=== PATIENT | female | born 1945 | race Asian ===

== ENCOUNTER 2021-04-10 08:01 | Outpatient (REF) | payer MEDICARE, SELFPAY ==
[2021-04-10 12:07] LABS: Potassium 3.8 mmol/L (3.3-5.1)
[2021-04-10 12:20] LABS: Free T4 (Free Thyroxine) 1.28 ng/dL (0.71-1.85); Thyroid Stimulating Hormone 0.96 uIU/mL (0.32-4.0)
== END 2021-04-10 08:02 | disposition home or self-care (01) ==
LOC: HO.HMGCLDS 08:01
PROVIDERS: PCP Internal Medicine; Visit Provider Internal Medicine
DX: E03.9 Hypothyroidism, unspecified (principal); E11.29 Type 2 diabetes mellitus with other diabetic kidney complication; E87.6 Hypokalemia; I10 Essential (primary) hypertension; E78.5 Hyperlipidemia, unspecified; Z78.0 Asymptomatic menopausal state
CPT/HCPCS: 36415; 84132; 84439; 84443

== ENCOUNTER 2021-04-11 14:07 | Outpatient (REF) | payer MEDICARE, SELFPAY ==
[2021-04-11 15:07] LABS: Creatinine Urine 31.39 mg/dL; Microalbum/Creatinine Ratio Ur 500.1 ug/mg cr
== END 2021-04-11 14:08 | disposition home or self-care (01) ==
LOC: HO.LNP 14:07
PROVIDERS: Visit Provider Internal Medicine
DX: E03.9 Hypothyroidism, unspecified (principal); E78.5 Hyperlipidemia, unspecified; E11.29 Type 2 diabetes mellitus with other diabetic kidney complication; I10 Essential (primary) hypertension; Z78.0 Asymptomatic menopausal state
CPT/HCPCS: 82043

== ENCOUNTER 2021-06-28 08:25 | Outpatient (REF) | payer MEDICARE, SELFPAY ==
[2021-06-28 12:01] LABS: Estimated Average Glucose 154 mg/dL
[2021-06-28 12:16] LABS: Alanine Aminotransferase 29 U/L (0-31); Anion Gap 20 (12-20); Aspartate Amino Transferase 31 U/L (5-31); Blood Urea Nitrogen 18 mg/dL (9-16); Calcium 10.1 mg/dL (8.4-10.2); Carbon Dioxide 29 mmol/L (22-29); Chloride 98 mmol/L (96-108); Cholesterol 121 mg/dL; Estimated Glomerular Filt Rate > 60; Glucose Fasting 102 mg/dL (60-99); HDL Cholesterol 41 mg/dL; LDL Cholesterol Calculated 56 mg/dl; Potassium 3.5 mmol/L (3.3-5.1); Sodium 143 mmol/L (135-145); Triglycerides 122 mg/dL
[2021-06-28 12:37] LABS: Free T4 (Free Thyroxine) 1.21 ng/dL (0.71-1.85); Thyroid Stimulating Hormone 1.36 uIU/mL (0.32-4.0)
== END 2021-06-28 08:26 | disposition home or self-care (01) ==
LOC: HO.HMGCLDS 08:25
PROVIDERS: PCP Internal Medicine; Visit Provider Internal Medicine
DX: E11.29 Type 2 diabetes mellitus with other diabetic kidney complication (principal); E87.6 Hypokalemia; I10 Essential (primary) hypertension; E03.9 Hypothyroidism, unspecified; E78.5 Hyperlipidemia, unspecified; Z78.0 Asymptomatic menopausal state
CPT/HCPCS: 36415; 80048; 80061; 82306; 83036; 84439; 84443; 84450; 84460

== ENCOUNTER 2021-09-26 08:36 | Outpatient (REF) | payer MEDICARE, SELFPAY ==
[2021-09-26 11:44] LABS: Estimated Average Glucose 157 mg/dL; Hemoglobin A1c % 7.1 %
[2021-09-26 12:03] LABS: Anion Gap 15 (12-20); Blood Urea Nitrogen 20 mg/dL (9-16); Calcium 9.8 mg/dL (8.4-10.2); Carbon Dioxide 30 mmol/L (22-29); Chloride 99 mmol/L (96-108); Cholesterol 111 mg/dL; Estimated Glomerular Filt Rate 52; Glucose Fasting 81 mg/dL (60-99); HDL Cholesterol 38 mg/dL; LDL Cholesterol Calculated 48 mg/dl; Potassium 3.4 mmol/L (3.3-5.1); Sodium 141 mmol/L (135-145); Thyroid Stimulating Hormone 1.14 uIU/mL (0.32-4.0); Triglycerides 125 mg/dL
== END 2021-09-26 08:37 | disposition home or self-care (01) ==
LOC: HO.HMGCLDS 08:36
PROVIDERS: Visit Provider Internal Medicine
DX: E11.29 Type 2 diabetes mellitus with other diabetic kidney complication (principal); E78.5 Hyperlipidemia, unspecified; E03.9 Hypothyroidism, unspecified; I10 Essential (primary) hypertension
CPT/HCPCS: 36415; 80048; 80061; 83036; 84439; 84443

== ENCOUNTER 2021-10-10 11:13 | Outpatient (REF) | payer MEDICARE, SELFPAY ==
[2021-10-10 14:21] LABS: Uric Acid 8.1 mg/dL (2.4-5.7)
== END 2021-10-10 11:14 | disposition home or self-care (01) ==
LOC: HO.HMGCLDS 11:13
PROVIDERS: Visit Provider Internal Medicine
DX: M25.40 Effusion, unspecified joint (principal)
CPT/HCPCS: 36415; 84550

== ENCOUNTER 2021-12-04 07:18 | Outpatient (REF) | payer MEDICARE, SELFPAY ==
[2021-12-04 11:45] LABS: Estimated Average Glucose 171 mg/dL; Hemoglobin A1c % 7.6 %
[2021-12-04 12:05] LABS: Alanine Aminotransferase 22 U/L (0-31); Anion Gap 17 (12-20); Aspartate Amino Transferase 23 U/L (5-31); Blood Urea Nitrogen 20 mg/dL (9-16); Calcium 9.6 mg/dL (8.4-10.2); Carbon Dioxide 29 mmol/L (22-29); Chloride 100 mmol/L (96-108); Cholesterol 103 mg/dL; Estimated Glomerular Filt Rate 55; Glucose Fasting 156 mg/dL (60-99); HDL Cholesterol 39 mg/dL; LDL Cholesterol Calculated 43 mg/dl; Potassium 3.5 mmol/L (3.3-5.1); Sodium 142 mmol/L (135-145); Triglycerides 108 mg/dL
[2021-12-04 12:08] LABS: Free T4 (Free Thyroxine) 1.32 ng/dL (0.71-1.85); Thyroid Stimulating Hormone 0.89 uIU/mL (0.32-4.0)
== END 2021-12-04 07:19 | disposition home or self-care (01) ==
LOC: HO.HMGCLDS 07:18
PROVIDERS: Visit Provider Internal Medicine
DX: E11.29 Type 2 diabetes mellitus with other diabetic kidney complication (principal); E78.5 Hyperlipidemia, unspecified; I10 Essential (primary) hypertension; E03.9 Hypothyroidism, unspecified
CPT/HCPCS: 36415; 80048; 80061; 83036; 84439; 84443; 84450; 84460

== ENCOUNTER 2021-12-05 07:46 | Outpatient (REF) | payer MEDICARE, SELFPAY ==
[2021-12-05 12:35] LABS: Creatinine Urine 25.23 mg/dL; Microalbum/Creatinine Ratio Ur 463.7 ug/mg cr
== END 2021-12-05 07:47 | disposition home or self-care (01) ==
LOC: HO.HMGCLNP 07:46
PROVIDERS: Visit Provider Internal Medicine
DX: E11.29 Type 2 diabetes mellitus with other diabetic kidney complication (principal); I10 Essential (primary) hypertension; E03.9 Hypothyroidism, unspecified; E78.5 Hyperlipidemia, unspecified
CPT/HCPCS: 82043

== ENCOUNTER 2024-12-25 06:35 | Outpatient (REF) | payer MEDICARE, SELFPAY ==
[2024-12-25 10:34] LABS: MANUAL DIFF FLAG NO
[2024-12-25 10:42] LABS: Hematocrit 39.1 % (37.0-47.0); Hemoglobin 13.9 g/dl (12.0-16.0); Imm Gran Abs Auto 0.07 X10*3/uL (0.00-0.03); Imm Gran Pct Auto 0.8 % (0.0-0.4); Lymphocytes Absolute Auto 1.8 X10*3/uL (1.2-4.9); Mean Corpuscular HGB Conc 35.5 g/dl (31.0-35.0); Mean Corpuscular Hemoglobin 34.7 pg (27.0-33.0); Mean Corpuscular Volume 97.5 fL (80.0-98.0); NRBC Abs Auto 0.000 X10*3/uL (0.0-0.012); NRBC Pct Auto 0.0 /100WBC (0.0-0.2); Platelet Count 253 X10*3/uL (160-400); Red Blood Count 4.01 X10*6/uL (4.20-5.50); White Blood Count 9.2 X10*3/uL (4.8-10.8)
[2024-12-25 11:05] LABS: Alanine Aminotransferase 152 U/L (0-31); Albumin Level 4.2 g/dL (3.5-5.0); Alkaline Phosphatase 70 U/L (39-117); Anion Gap 14 (12-20); Aspartate Amino Transferase 119 U/L (5-31); Blood Urea Nitrogen 28 mg/dL (9-16); Calcium 9.8 mg/dL (8.4-10.2); Carbon Dioxide 29 mmol/L (22-29); Chloride 102 mmol/L (96-108); Cholesterol 107 mg/dL (<200); Estimated Glomerular Filt Rate 45; HDL Cholesterol 46 mg/dL (>40); Iron 88 mcg/dL (30-160); Percent Iron Saturation 30 % (15-50); Potassium 3.2 mmol/L (3.3-5.1); Sodium 142 mmol/L (135-145); Total Iron Binding Capacity 297 mcg/dL (228-428); Total Protein 7.0 g/dL (6.5-8.0); Triglycerides 72 mg/dL (<150); Unsaturated Iron Binding 209 ug/dL; Uric Acid 2.8 mg/dL (2.4-5.7)
[2024-12-25 11:24] LABS: Free T4 (Free Thyroxine) 1.66 ng/dL (0.71-1.85); Thyroid Stimulating Hormone 1.28 uIU/mL (0.32-4.0)
[2024-12-25 11:39] LABS: Microalbum/Creatinine Ratio Ur 714.4 ug/mg cr (<30)
== END 2024-12-25 06:36 | disposition home or self-care (01) ==
LOC: HO.HMGCLDS 06:35
PROVIDERS: PCP Internal Medicine; Visit Provider Internal Medicine
DX: E11.29 Type 2 diabetes mellitus with other diabetic kidney complication (principal); Z78.0 Asymptomatic menopausal state; E78.5 Hyperlipidemia, unspecified; I10 Essential (primary) hypertension; E03.9 Hypothyroidism, unspecified
CPT/HCPCS: 36415; 80053; 80061; 82043; 82570; 83540; 84439; 84443; 84550; 85025

== ENCOUNTER 2024-12-28 09:15 | Outpatient (AMB) | payer MEDICARE, SELFPAY ==
--- OUTSIDE RECORDS SUMMARY | 2024-12-28 09:36 | XMS_ITS | Encounter Summary ---
Author Organization [facility], Address [address] [place] [address] Phone Care Team Providers Care Asset Administrator Name Role Phone Denia Berrios MD Primary Care Provider [phone]- [phone] Reason for Visit * Reason Comments Med Refill Encounter Details Date Type Department Care Team (Late st Contact Info) Description 01/18/2023 Refill [facility] [address] [place] [address] Shad Arciniega MD [address] [place] [address] [place] [id number] Social History Tobacco Use Types Packs/Day Years Used Date Smoking Tobacco: Never Alcohol Use Standard Drinks/Week Comments No 0 (1 standard drink = 0.6 oz pur e alcohol) Comments Unknown Sex and Gender Information Value Date Recorded Sex Assigned at Not on file Legal Sex Female 4:32 PM EST Gender Identity Not on file Sexual Orientation Not on file documented as of this encounter Plan of Treatment Not on file documented as of this encounter Visit Diagnoses Not on filedocumented in this encounter Care Teams Asset Administrator Relationship Specialty Start Date End Date Denia Berrios MD [facility] [place] [address] PCP - General 04/21/19 documented as of this encounter
--- NOTE | 2024-12-28 10:14 | MHC.PC.OV ---
Vital Signs 12/28/24 10:22 Height 5 ft 2 in Weight 177 lb BMI 32.4 BP 140/70 H Blood Pressure Location Rt brachial Position Sitting Respiration 15 Pulse 61 Pulse Source Pulse Oximeter Temp 97.9 F Temp Source Oral Pulse Oximetry (%) 97 Oxygen Delivery Method Room Air Intake Visit Reasons: follow up Intake Note: Pt is here today for her f/u labs Allergies No Known Allergies Allergy (Verified 12/28/24 10:44) Medication List - Last Reconciled 12/28/24 by Naye Berrios MD allopurinol 300 mg PO DAILY 90 days amiodarone 200 mg PO BID amlodipine 10 mg PO DAILY aspirin (Adult Aspirin Regimen) 81 mg PO DAILY captopril 25 mg PO TID clopidogrel 75 mg PO DAILY dulaglutide (Trulicity) 1.5 mg (0.5 mL) subcut QWEEK 3 months insulin degludec (Tresiba FlexTouch U-100 insulin) 30 units subcut DAILY levothyroxine 100 mcg PO QAM losartan-hydrochlorothiazide 100-25 mg 1 tab PO DAILY metformin 1,000 mg PO BID metoprolol tartrate 100 mg PO BID 90 days rosuvastatin 5 mg PO Q2D Tobacco use date assessed: 12/28/24 Fall risk assessment: 2 + Falls in past year Last assessed Fall Risk: 12/28/24 Dental Screening Dental Screen Date: 12/28/24 Did you have a dental visit in the last 12 months?: Yes Did you have a dental problem in the last 6 months where you did not have access to dental care?: No Was dental information given to patient?: Patient has dentist HPI follow up HPI Details [age] year-old lady with history diabetes mellitus previously being seen at [facility] endocrine clinic, has hypertension, and dyslipidemia, here today for follow-up.? She has been living in the [facility] for the past 3 years, and states that she has been seeing a provider there. No copy of any recent labs available for review. Has been taking her medications as directed, but unable to stick to her diet, eats a lot of rice with every meal Had a TIA February 2024, was admitted in the hospital in the [facility] and started on Plavix in addition to ask [facility] Medical History (Updated 12/28/24 @ 11:23 by Naye Berrios MD) History of TIA (transient ischemic attack) Chronic kidney disease Insomnia Restless leg syndrome Menopause Essential hypertension Acquired hypothyroidism Dyslipidemia Type 2 diabetes mellitus with other diabetic kidney complication Surgical History History of colonoscopy History of eye surgery History of right knee joint replacement History of left knee replacement History of lobectomy of thyroid H/O arthroscopy of left knee History of carpal tunnel surgery History of tonsillectomy History of total abdominal hysterectomy History of thyroidectomy Family History Father Acute myocardial infarction CVD (cardiovascular disease) Mother Brain tumor Maternal Grandmother Diabetes mellitus Social History Housing: House Alcohol intake: never Patient Tobacco Use Status: Never used Tobacco e-Cigarette/Vaping Use: Never Used Current occupational status: retired Cognitive needs: No Hearing needs: No Vision needs: No Questionnaire PHQ-9 Over the last 2 weeks, how often have you been bothered by any of the following problems? 1. Little interest or pleasure in doing things: not at all 2. Feeling down, depressed, or hopeless: not at all 3. Trouble falling or staying asleep, or sleeping too much: not at all 4. Feeling tired or having little energy: not at all 5. Poor appetite or overeating: not at all 6. Feeling bad about yourself - or that you are a failure or have let yourself or your family down: not at all 7. Trouble concentrating on things, such as reading the newspaper or watching television: not at all 8. Moving or speaking so slowly that other people could have noticed. Or the opposite - being so fidgety or restless that you have been moving around a lot more than usual: not at all 9. Thoughts that you would be better off or of hurting yourself in some way: not at all Total score: 0 Depression Screening Interpretation: Negative Depression Screening Done: Yes 50227 - PHQ-9 Billing: Yes Source: Developed by Drs. Navjot Mars, Ophelia Posey, George Jama and colleagues, with an educational claudia from [employer]. Thrive Questionnaire Date Thrive assessed: 12/28/24 I am a: Patient What is your living situation today?: I have a steady place to live Within the past 12 months, did the food you bought not last and you didn't have the money to get more?: Never true Within the past 12 months, did you worry whether your food would run out before you got money to buy more?: Never true Do you have trouble paying for medicines?: No Do you have trouble getting transportation to medical appointments?: No Do you have trouble paying your heating and electricity bill?: No Do you have trouble taking care of your child, family member or friend?: No Do you have trouble with day-to-day activities such as bathing, preparing meals, shopping, managing finances, etc.?: No Are you currently unemployed and looking for a job?: No Are you interested in more education?: No Currently or been in a relationship where the following occur: No concerns reported THRIVE Score: 0 AUDIT C Alcohol Use Questionnaire (AUDIT-C) 1. How often do you have a drink containing alcohol?: Never Total Score: 0 Score Reviewed/Action Taken: Yes OMAR-7 AMB Questionnaire OMAR-7 Date OMAR - 7 assessed: 12/28/24 Feeling nervous, anxious, or on edge: 0 = Not at all Not being able to stop or control worryin = Not at all Worrying too much about different things: 0 = Not at all Trouble relaxin = Not at all Being so restless that it is hard to sit still: 0 = Not at all Becoming easily annoyed or irritable: 0 = Not at all Feeling afraid as if something awful might happen: 0 = Not at all Total OMAR-7 score (0-4 normal; 5-9 mild; 10-14 moderate; 15-21 severe): 0 Source: Developed by Drs. Navjot Mars, Ophelia Posey, George Jama and colleagues, with an educational claudia from [employer]. Physical exam (Primary Care) Vital Signs: Last Vital Signs Temp 97.9 F 12/28/24 10:22 Pulse 61 12/28/24 10:22 Resp 15 12/28/24 10:22 BP 140/70 H 12/28/24 10:22 Pulse Ox 97 12/28/24 10:22 Oxygen Delivery Method Room Air 12/28/24 10:22 BMI result Body Mass Index 32.4 Tobacco/Smoking Status: Tobacco use Status Tobacco use date assessed 12/28/24 12/28/24 10:15 Patient Tobacco Use Status Never used Tobacco 12/28/24 10:15 e-Cigarette/Vaping Use Never Used 12/28/24 10:15 PHQ-9: PHQ-9 Score PHQ-9: Total score 0 12/28/24 11:20 Depression Screening Interpretation: Negative Thrive Assessment: Date of Thrive Assessment Date Thrive assessed 12/28/24 12/28/24 10:17 Currently or been in a relationship where the following occur: No concerns reported Results AMB Hemoglobin A1c AMB Hemoglobin A1c 6.5 % Last Edit by Berenice Pena CMA on 12/28/24 10:57 Immunizations pneumoc 20-riley conj-dip cr(PF) 0.5 mL IM syringe Performing Provider: Naye Berrios MD Performing Location: [facility] Administered by: Berenice Pena CMA on 12/28/24 11:28 Dose Route Admin Location Dispensed Lot Number Expiration Date [facility] Compensation Adjuster 0.5 mL IM Left Deltoid 0.5 mL [id number] 12/28/24 2180-2875-44 [employer] Total Dispensed Waste 0.5 mL 0 % VIS Given Date VIS Provided VIS Publication Date 12/28/24 Single Vaccine 24 Eligibility Eligibility Date Funding Source Not [facility] Eligible 12/28/24 Private Results Reviewed Results Reviewed: Laboratory Last Values Hgb A1c (Clinic) 6.5 % (4.0-6.0) H 12/28/24 10:49 Name: Yasemin Carter Age/Sex: 79/F : 1945 Unit#: [id number] Attend Dr: Naye Berrios MD Re12/25/24 Status: DEP [facility] Dis[facility]: SPEC : [id number] AFIA: 12/25/24 STATUS: COMP REQ : [id number] RECD: 12/25/[address]: Naye Berrios MD COMP: 12/25/24 ENTERED: 12/25/[address]: ORDERED: CBC Auto Diff Test Result Flag Reference WBC 9.2 4.8-10.8 X10*3/uL RBC 4.01 L 4.20-5.50 X10*6/uL HGB 13.9 12.0-16.0 g/dl HCT 39.1 37.0-47.0 % MCV 97.5 80.0-98.0 fL MCH 34.7 H 27.0-33.0 pg MCHC 35.5 H 31.0-35.0 g/dl RDW 14.6 11.0-16.0 % PLT 253 160-400 X10*3/uL MPV 11.5 9.4-12.3 fL Neut Pct Auto 67.5 45-73 % ImGran Pct Auto 0.8 H 0.0-0.4 % Lymp Pct Auto 19.5 L 20-40 % [place] Pct Auto 7.3 2-11 % Eos Pct Auto 4.0 0-4 % Baso Pct Auto 0.9 0-2 % NRBC Pct Auto 0.0 0.0-0.2 /100WBC ANC Neut Abs # 6.2 2.0-8.3 x10*3/uL ImGran Abs Auto 0.07 H 0.00-0.03 X10*3/uL Lymph Abs Auto 1.8 1.2-4.9 X10*3/uL [place] Abs Auto 0.7 0.1-1.2 X10*3/uL Eos Abs Auto 0.4 0.0-0.4 X10*3/uL Baso Abs Auto 0.1 0.0-0.2 X10*3/uL NRBC Abs Auto 0.000 0.0-0.012 X10*3/uL isabel: Yasemin Carter Age/Sex: 79/F : 1945 Unit#: [id number] Attend Dr: Naye Berrios MD Re12/25/24 Status: DEP REF Location: [facility] Disch: SPEC : [id number] AFIA: 12/25/24 STATUS: COMP REQ : [id number] RECD: 12/25/24-[address]: Naye Berrios MD COMP: 12/25/244 ENTERED: 12/25/[address]: ORDERED: CMP Fast, Uric, IRON PROF, Lipid Panel, Free T4, TSH Test Result Flag Reference Sodium 142 135-145 mmol/L Potassium 3.2 L 3.3-5.1 mmol/L CL 102 96-108 mmol/L CO2 29 22-29 mmol/L Gap 14 12-20 BUN 28 H 9-16 mg/dL Creat 1.16 0.5-1.4 mg/dL eGFR 45 Chronic Kidney Disease: Estimated GFR < 60 mL/min/1.73m2 Severe Kidney Disease: Estimated GFR < 15 mL/min/1.73m2 FBS 132 H 60-99 mg/dL A fasting glucose of 126 mg/dl or greater on more than one occasion is considered diagnostic of diabetes. Uric Acid 2.8 2.4-5.7 mg/dL CA 9.8 8.4-10.2 mg/dL Iron 88 30-160 mcg/dL TIBC 297 228-428 mcg/dL Saturation 30 15-50 % UIBC 209 ug/dL Total Bili 0.4 0.0-1.0 mg/dL AST (GOT) 119 H 5-31 U/L ALT (GPT) 152 H 0-31 U/L Protein, Total 7.0 6.5-8.0 g/dL Alb 4.2 3.5-5.0 g/dL Triglyceride 72 <150 mg/dL Desirable Triglyceride: less than 150 mg/dL Borderline High Triglyceride 150-199 mg/dL High Triglyceride: 200-499 mg/dL Very High Triglyceride: greater than or equal to 5OO mg/dL Cholesterol 107 <200 mg/dL Desirable Cholesterol: less than 200 mg/dL Borderline High Cholesterol: 200-239 mg/dL High Cholesterol: greater than 239 mg/dL LDL Calculated 47 <100 mg/dL Desirable LDL: less than 100 mg/dL Near Optimal/Above Optimal LDL: 110-129 mg/dL Borderline High LDL: 130-159 mg/dL High LDL: 160-189 mg/dL Very High LDL: greater than or equal to 190 mg/dL HDL 46 >40 mg/dL Desirable HDL: greater than 40 mg/dL Note: This HDL assay may give artificially low results in patients with liver disease. Alk Phos 70 39-117 U/L Free T4 1.66 0.71-1.85 ng/dL TSH 3rd Gen. 1.28 0.32-4.0 uIU/mL TSH 3rd Generation ([facility]) Laboratory Tests 12/25/24 08:00 Urine Creatinine 75.30 Urine Microalbumin 538.0 Microalb/Creat Ratio 714.4 H Coding Level of Care Code Est Pt Level 4 (95337) Diagnoses Chronic kidney disease N18.9 Type 2 diabetes mellitus with other diabetic kidney complication E11.29 History of TIA (transient ischemic attack) Z86.73 Elevated liver enzymes R74.8 Hypokalemia E87.6 Additional Codes PHQ-9 - 70494 - PHQ-9 Billing: Yes ([id number]) Assessment & Plan Assessment & Plan (1) Chronic kidney disease: Code(s): N18.9 - Chronic kidney disease, unspecified Category: Medical (2) Type 2 diabetes mellitus with other diabetic kidney complication: Code(s): E11.29 - Type 2 diabetes mellitus with other diabetic kidney complication Category: Medical (3) History of TIA (transient ischemic attack): Code(s): Z86.73 - Personal history of transient ischemic attack (TIA), and cerebral infarction without residual deficits Category: Medical (4) Elevated liver enzymes: Code(s): R74.8 - Abnormal levels of other serum enzymes (5) Hypokalemia: Code(s): E87.6 - Hypokalemia Orders: Orders Comprehensive [facility]. Panel Fast 12/19/24 E11.29 - Type 2 diabetes mellitus with other diabetic kidney complication, E87.6 - Hypokalemia, N18.9 - Chronic kidney disease, unspecified, R74.8 - Abnormal levels of other serum enzymes, Z86.73 - Personal history of transient ischemic attack (TIA), and cerebral infarction without residual deficits AMB Hemoglobin A1c Today E11.29 - Type 2 diabetes mellitus with other diabetic kidney complication B Type Natriuretic Peptide 12/19/24 E11.29 - Type 2 diabetes mellitus with other diabetic kidney complication, E87.6 - Hypokalemia, N18.9 - Chronic kidney disease, unspecified, R74.8 - Abnormal levels of other serum enzymes, Z86.73 - Personal history of transient ischemic attack (TIA), and cerebral infarction without residual deficits Pneumococcal 20 Immunization Today Z23 - Encounter for immunization Medications: New potassium chloride ER (Klor-Con) 10 mEq PO DAILY 30 tabs 0RF E87.6 - Hypokalemia Changed From insulin degludec (Tresiba FlexTouch U-100 insulin) 65 units (0.65 mL) subcut DAILY 90 days 58.5 mL 6RF To insulin degludec (Tresiba FlexTouch U-100 insulin) 30 units subcut DAILY
[2024-12-28 10:22] VITALS: BP 140/70; PULSE 61; RESP 15; TEMP 36.6; O2SAT 97; BMI 32.4
== END 2024-12-28 12:09 | disposition home or self-care (01) ==
PROVIDERS: PCP Internal Medicine; Visit Provider Internal Medicine
DX: Z23 Encounter for immunization (principal); E11.29 Type 2 diabetes mellitus with other diabetic kidney complication

== ENCOUNTER → 2024-12-28 09:15 | Outpatient (BNVA) | payer MEDICARE, SELFPAY | PROVIDERS: PCP Internal Medicine; Visit Provider Internal Medicine | DX: Z23 Encounter for immunization (principal); N18.31 Chronic kidney disease, stage 3a; E11.29 Type 2 diabetes mellitus with other diabetic kidney complication; R74.8 Abnormal levels of other serum enzymes; E87.6 Hypokalemia; Z86.73 Personal history of transient ischemic attack (TIA), and cerebral infarction without residual deficits | CPT/HCPCS: 83036; 90471; 90677; 96127; 99212 ==

== ENCOUNTER 2025-01-04 10:51 | Outpatient (REF) | payer MEDICARE, SELFPAY ==
--- OUTSIDE RECORDS SUMMARY | 2025-01-04 12:01 | XMS_ITS | Encounter Summary ---
Author Organization [facility], Address [address] [place] [address] Phone Care Team Providers Care Wood Machine Carver Name Role Phone Denia Berrios MD Primary Care Provider +1- [phone] Reason for Visit * Reason Comments Med Refill Encounter Details Date Type Department Care Team (Late st Contact Info) Description 01/18/2023 Refill [facility] [address] [place] [address] Shad Arciniega MD [address] [place] [address] [place] [phone] Social History Tobacco Use Types Packs/Day Years [...] on filedocumented in this encounter Care Teams Wood Machine Carver Relationship Specialty Start Date End Date Denia Berrios MD [facility] [place] [address] PCP - General 04/21/19 documented as of this encounter
[2025-01-04 13:20] LABS: Alanine Aminotransferase 97 U/L (0-31); Albumin Level 4.2 g/dL (3.5-5.0); Alkaline Phosphatase 79 U/L (39-117); Anion Gap 14 (12-20); Aspartate Amino Transferase 95 U/L (5-31); Blood Urea Nitrogen 19 mg/dL (9-16); Calcium 9.6 mg/dL (8.4-10.2); Carbon Dioxide 27 mmol/L (22-29); Chloride 105 mmol/L (96-108); Estimated Glomerular Filt Rate 51; Potassium 4.2 mmol/L (3.3-5.1); Sodium 142 mmol/L (135-145); Total Protein 6.8 g/dL (6.5-8.0)
[2025-01-04 13:52] LABS: B Type Natriuretic Peptide 167 pg/mL (<100)
== END 2025-01-04 10:52 | disposition home or self-care (01) ==
LOC: HO.HMGCLDS 10:51
PROVIDERS: PCP Internal Medicine; Visit Provider Internal Medicine
DX: E11.29 Type 2 diabetes mellitus with other diabetic kidney complication (principal); N18.9 Chronic kidney disease, unspecified; R74.8 Abnormal levels of other serum enzymes; E87.6 Hypokalemia; Z86.73 Personal history of transient ischemic attack (TIA), and cerebral infarction without residual deficits
CPT/HCPCS: 36415; 80053; 83880